=== PATIENT | female | born 1995 | race Caucasian/White ===

== ENCOUNTER 2017-04-05 19:45 | Emergency (ER) | payer BC ==
[2017-04-05 19:55] VITALS: BP 111/74
== END 2017-04-05 20:55 | disposition home or self-care (01) ==
LOC: ED 19:45
DX: S91.331A Puncture wound without foreign body, right foot, initial encounter (principal); Z88.0 Allergy status to penicillin; W22.8XXA Striking against or struck by other objects, initial encounter; Y93.89 Activity, other specified; Y99.8 Other external cause status; Y92.89 Other specified places as the place of occurrence of the external cause

== ENCOUNTER 2018-08-03 10:44 | Emergency (ER) | payer BC, OTHER ==
[~2018-08-03] VITALS: Ht 172.7 cm; Wt 56.7 kg
[2018-08-03 11:05] VITALS: Ht 172.7 cm; Wt 56.7 kg
[2018-08-03 12:24] LABS: BASOPHIL % 0.3 % (0-2); PLATELET COUNT 200 x10^3mcL (130-400)
[2018-08-03 12:28] LABS: RED CELL DISTRIBUTION WIDTH 15.5 % (11.5-14.5)
[2018-08-03 13:55] LABS: CALCIUM 8.9 mg/dL (8.5-10.1); CARBON DIOXIDE 25.4 mmol/L (21-32); CHLORIDE SERUM 104 mmol/L (98-107); CREATININE SERUM 0.7 mg/dL (0.6-1.0); GFR1 > 60 mL/min; GLUCOSE SERUM 94 mg/dL (74-106); SODIUM SERUM 137 mmol/L (136-145)
[2018-08-03 14:00] LABS: ALBUMIN 4.1 g/dL (3.4-5.0); ALKALINE PHOSPHATASE 65 U/L (46-116); ALT/SGPT 16 U/L (14-59); AST/SGOT 16 U/L (15-37); BILIRUBIN TOTAL 1.6 mg/dL (0.20-1.00); TOTAL PROTEIN, SERUM 7.9 g/dL (6.4-8.2)
[2018-08-03 14:27] LABS: AMPHETAMINE QUAL UR NONE DETECTED (See below)
[2018-08-03 22:12] VITALS: BP 98/60
== END 2018-08-03 22:11 | disposition home or self-care (01) ==
LOC: ED 10:44
PROVIDERS: Emergency Medicine
DX: F32.9 Major depressive disorder, single episode, unspecified (principal); Z88.0 Allergy status to penicillin; Z88.1 Allergy status to other antibiotic agents
CPT/HCPCS: 36415; G0480

== ENCOUNTER 2019-06-02 02:45 | Emergency (ER) | payer BC, OTHER ==
[~2019-06-02] VITALS: Ht 172.7 cm; Wt 65.4 kg
[2019-06-02 06:16] LABS: microscopic required? NO
[2019-06-02 06:24] LABS: BASOPHIL % 0.2 % (0-2); PLATELET COUNT 192 x10^3mcL (130-400)
[2019-06-02 06:34] LABS: CALCIUM 8.2 mg/dL (8.5-10.1); CARBON DIOXIDE 22.6 mmol/L (21-32); CHLORIDE SERUM 109 mmol/L (98-107); CREATININE SERUM 0.7 mg/dL (0.6-1.0); GFR1 > 60 mL/min; GLUCOSE SERUM 89 mg/dL (74-106); POTASSIUM SERUM 3.5 mmol/L (3.5-5.1); SODIUM SERUM 142 mmol/L (136-145)
[2019-06-02 06:39] LABS: ALBUMIN 3.5 g/dL (3.4-5.0); ALKALINE PHOSPHATASE 63 U/L (46-116); AST/SGOT 10 U/L (15-37); BILIRUBIN TOTAL 0.61 mg/dL (0.20-1.00); LIPASE 96 IU/L (73-393); TOTAL PROTEIN, SERUM 6.9 g/dL (6.4-8.2)
[2019-06-02 07:00] LABS: UA SPECIFIC GRAVITY 1.025 (1.005-1.035); urine erythrocyte NEGATIVE (NEGATIVE)
[2019-06-02 07:07] LABS: ALT/SGPT 18 U/L (14-59)
[2019-06-02 07:40] LABS: AMPHETAMINE QUAL UR NONE DETECTED (See below)
[2019-06-02 07:50] VITALS: BP 94/59
== END 2019-06-02 07:50 | disposition home or self-care (01) ==
LOC: ED 02:45
PROVIDERS: Emergency Medicine
DX: R10.816 Epigastric abdominal tenderness (principal); R11.2 Nausea with vomiting, unspecified; R19.7 Diarrhea, unspecified; Z88.1 Allergy status to other antibiotic agents; Z98.890 Other specified postprocedural states
CPT/HCPCS: J2405; J7030